=== PATIENT | female | born 1995 | race Caucasian/White ===

== ENCOUNTER 2018-05-05 20:28 | Emergency (ER) | payer OTHER ==
[~2018-05-05] VITALS: Ht 154.9 cm; Wt 60.3 kg
--- NOTE | 2018-05-05 21:05 | PHYS DOC ---
Past History Past Medical History: No Pertinent History Past Surgical History: No Surgical History Alcohol Use: Occasionally Drug Use: None Adult General Chief Complaint Chief Complaint: LACERATION/AVULSION HPI HPI 23-year-old female presents with left foot laceration. The patient was climbing on a ladder and hanging a curtain rods. As she climbed down she slipped a bit and lacerated the bottom of her left foot on her bed frame. She had immediate bleeding and is concerned she may need stitches. Her tetanus is not up-to-date. She denies any other injuries. She did not hit her head or get knocked unconscious. It is a 3cm laceration. Review of Systems Review of Systems Constitutional: Denies fever or chills [] Eyes: Denies change in visual acuity, redness, or eye pain [] HENT: Denies nasal congestion or sore throat [] Respiratory: Denies cough or shortness of breath [] Cardiovascular: No additional information not addressed in HPI [] GI: Denies abdominal pain, nausea, vomiting, bloody stools or diarrhea [] : Denies dysuria or hematuria [] Musculoskeletal: Denies back pain or joint pain [] Integument: Denies rash or skin lesions [] Neurologic: Denies headache, focal weakness or sensory changes [] Endocrine: Denies polyuria or polydipsia [] All other systems were reviewed and found to be within normal limits, except as documented in this note. Physical Exam Physical Exam Constitutional: Well developed, well nourished, no acute distress, non-toxic appearance. [] HENT: Normocephalic, atraumatic, bilateral external ears normal, oropharynx moist, no oral exudates, nose normal. [] Eyes: PERRLA, EOMI, conjunctiva normal, no discharge. [] Neck: Normal range of motion, no tenderness, supple, no stridor. [] Cardiovascular:Heart rate regular rhythm, no murmur [] Lungs & Thorax: Bilateral breath sounds clear to auscultation [] Abdomen: Bowel sounds normal, soft, no tenderness, no masses, no pulsatile masses. [] Skin: 3 cm x 0.5 cm skin tear overlying a 3 cm long linear laceration of the plantar aspect of the left foot.[] Back: No tenderness, no CVA tenderness. [] Extremities: No tenderness, no cyanosis, no clubbing, ROM intact, no edema. [] Neurologic: Alert and oriented X 3, normal motor function, normal sensory function, no focal deficits noted. [] Psychologic: Affect normal, judgement normal, mood normal. [] Current Patient Data Vital Signs Vital Signs Date Time Temp Pulse Resp B/P (MAP) Pulse Ox O2 Delivery O2 Flow Rate FiO2 05/05/18 20:30 98.3 122 18 98 Room Air EKG EKG [] Radiology/Procedures Radiology/Procedures [] Course & Med Decision Making Course & Med Decision Making Pertinent Labs and Imaging studies reviewed. (See chart for details) The patient's laceration was repaired with sutures. See lack note for more details. She was given a tetanus booster in the ED. I will discharge her with [place] for pain. She is stable for discharge at this time. [] Dragon Disclaimer Dragon Disclaimer This electronic medical record was generated, in whole or in part, using a voice recognition dictation system. Laceration Repair Lac Repair Indication: [Laceration of the plantar aspect of the left foot. Verbal consent was obtained from the patient for laceration repair with sutures. Procedure: The patient was placed in the appropriate position and the wound was cleansed with normal saline under pressure. There were no foreign bodies found. 1% lidocaine with epi was used for anesthesia. A total of 4 mL was used. The laceration was closed with 4 interrupted 3-0 Ethilon sutures.] The wound area was then dressed with topical antibiotic and a clean dressing. Total repaired wound length: 3 cm. Other Items: None The patient tolerated the procedure well. Complications: None. Departure Departure: Referrals: PCP,UNKNOWN (PCP) Scripts Hydrocodone Bit/Acetaminophen (NORCO 5-325 TABLET) 1 Each Tablet 1 TAB PO PRN Q6HRS PRN for PAIN, #10 TAB 0 Refills Prov: LAVELL ANDRES DO 05/05/18 LAVELL ANDRES DO May 05, 2018 21:05
[2018-05-05] MEDS ORDERED: LIDOCAINE 1%/EPI 1:100,000 20 ML VIAL. IJ ONE (21:15)
[2018-05-05] MEDS ORDERED: HYDR-971 PO (21:57)
[2018-05-05] MEDS ORDERED: HYDROcodone/APAP 5/325MG 1 TAB TABLET ONE (22:15)
[2018-05-05 22:20] VITALS: BP 144/82
[2018-05-05] MEDS ORDERED: DIPHTH,PERTUSS(ACELL),TET TOX 0.5 ML DISP.SYRIN. VAX IM ONE (22:30)
[2018-05-05] MEDS ORDERED: HYDROcodone/APAP 5/325MG 1 TAB TABLET PO ONE (22:30)
== END 2018-05-05 22:22 | disposition home or self-care (01) ==
LOC: ER 20:28
DX: S91.312A Laceration without foreign body, left foot, initial encounter (principal); W22.03XA Walked into furniture, initial encounter; Y93.39 Activity, other involving climbing, rappelling and jumping off; Y92.89 Other specified places as the place of occurrence of the external cause; Y99.8 Other external cause status
CPT/HCPCS: 12002; 90471; 90715; 99283-25